=== PATIENT | female | born 1970 | race Caucasian/White ===

== ENCOUNTER 2018-12-06 09:50 | Emergency (ER) | payer MEDICARE ==
[~2018-12-06] VITALS: Ht 170.2 cm; Wt 105.2 kg
[~2018-12-06 09:50] MED LIST: ATENOLOL25 MG PO; BENICAR20 MG; GLUCOPHAGE1000 MG; LEVOTHYROXINE125 MCG; LEVOTHYROXINE137 MCG PO; NOVOLIN 70100 UNITS/ SQ; PROPANOLOL ER; TRAJENTA
[2018-12-06 12:17] LABS: BASOPHILS # (AUTO) 0.1 (0.0-0.1); BASOPHILS % 0.5 % (0.0-1.0); EOSINOPHILS # (AUTO) 0.1 (0.0-0.4); EOSINOPHILS % 0.5 % (0.0-6.0); HEMATOCRIT 27.2 % (34.2-44.1); LYMPHOCYTES # (AUTO) 9.1 (1.0-3.2); LYMPHOCYTES % 41.9 % (18.0-39.1); MEAN CORPUSCULAR HEMOGLOBIN 16.2 pg (28-32); MEAN CORPUSCULAR HGB CONC 24.6 g/dL (31-35); MEAN CORPUSCULAR VOLUME 65.7 fL (81-99); MONOCYTES # (AUTO) 1.6 (0.2-0.8); MONOCYTES % 7.3 % (4.4-11.3); NEUTROPHILS # (AUTO) 10.6 (2.1-6.9); NEUTROPHILS % 49.2 % (38.7-80.0); PLATELET COUNT 307 x10e3/uL (140-360); RED BLOOD COUNT 4.14 x10e6/uL (3.6-5.1); RED CELL DISTRIBUTION WIDTH 20.7 % (11.7-14.4)
[2018-12-06 12:28] LABS: HEMOGLOBIN 6.7 g/dL (12.0-16.0)
[2018-12-06 13:17] LABS: PREGNANCY TEST, URINE NEGATIVE (NEGATIVE)
[2018-12-06 13:20] LABS: BILIRUBIN,URINE NEGATIVE (NEGATIVE); CLARITY,URINE SL CLOUDY (CLEAR); COLOR,URINE YELLOW (YELLOW); KETONES,URINE NEGATIVE (NEGATIVE); LEUKOCYTE ESTERASE ,URINE MODERATE (NEGATIVE); NITRITE,URINE NEGATIVE (NEGATIVE); PROTEIN,URINE DIPSTICK TRACE (NEGATIVE); URINE UROBILINOGEN 0.2 mg/dL (0.2 - 1)
[2018-12-06 13:39] LABS: BACTERIA,URINE MODERATE /HPF; EPITHELIAL CELLS,URINE MODERATE /LPF
--- NOTE | 2018-12-06 13:54 | Diagnostic Imaging Report ---
EXAMINATION: PA and lateral views of the chest. COMPARISON: None CLINICAL HISTORY: Shortness of breath DISCUSSION: The lungs are well-inflated. No focal airspace consolidation, pleural effusion, or pneumothorax. Cardiomediastinal contour and pulmonary vasculature are within normal limits. No acute osseous abnormality. Spinal stimulator device terminates over the mid thoracic vertebral column. Multilevel degenerative disc changes of the thoracic spine. IMPRESSION: No acute cardiopulmonary abnormalities. Signed by: Dr. Ryne Ricci M.D. on 12/06/2018 1:51 PM
[2018-12-06] MEDS ORDERED: CEFTRIAXONE SOD 1 GM VIAL IM ONE (14:00)
[2018-12-06] MEDS ORDERED: LIDOCAINE HCL 1% LOCAL INJ 20 ML VIAL INJ ONE (14:00)
[2018-12-06 14:47] VITALS: BP 143/61
== END 2018-12-06 14:50 | disposition home or self-care (01) ==
LOC: ER 09:50
DX: D50.0 Iron deficiency anemia secondary to blood loss (chronic) (principal); N30.01 Acute cystitis with hematuria; D64.9 Anemia, unspecified; Z83.3 Family history of diabetes mellitus; Z82.49 Family history of ischemic heart disease and other diseases of the circulatory system
CPT/HCPCS: 36415; 71046; 81001; 81025; 85025; 87086; 99283; J0696; J2001

== ENCOUNTER 2021-07-07 11:17 | Inpatient (IN) | payer MEDICARE ==
[~2021-07-07] VITALS: Ht 170.2 cm; Wt 117.9 kg
[2021-07-07] VITALS (12 sets, daily range): BP systolic 111–160; BP diastolic 64–101
[2021-07-07] MEDS ORDERED: INSULIN REGULAR, HUMAN 100 UNIT/1 ML IV ONE ×2 (11:30→15:30)
[2021-07-07] MEDS ORDERED: ALBUTEROL/IPRATROPIUM 3 ML NEB NEB ONE (11:30)
[2021-07-07 12:01] LABS: HEMATOCRIT 43.4 % (34.2-44.1); HEMOGLOBIN 12.7 g/dL (12.0-16.0); LYMPHOCYTES # (AUTO) 93.2 (1.0-3.2); LYMPHOCYTES % 78.4 % (18.0-39.1); MEAN CORPUSCULAR HEMOGLOBIN 26.3 pg (28-32); MEAN CORPUSCULAR HGB CONC 29.3 g/dL (31-35); MEAN CORPUSCULAR VOLUME 89.9 fL (81-99); MONOCYTES # (AUTO) 4.3 (0.2-0.8); MONOCYTES % 3.6 % (4.4-11.3); NEUTROPHILS # (AUTO) 20.1 (2.1-6.9); NEUTROPHILS % 16.9 % (38.7-80.0); PLATELET COUNT 314 x10e3/uL (140-360); RED BLOOD COUNT 4.83 x10e6/uL (3.6-5.1); RED CELL DISTRIBUTION WIDTH 15.2 % (11.7-14.4)
[2021-07-07 12:08] LABS: CLARITY,URINE SL CLOUDY (CLEAR); COLOR,URINE YELLOW (YELLOW)
[2021-07-07 12:10] LABS: KETONES,URINE >=160 (NEGATIVE); LEUKOCYTE ESTERASE ,URINE NEGATIVE (NEGATIVE); NITRITE,URINE NEGATIVE (NEGATIVE); PROTEIN,URINE DIPSTICK >=300 (NEGATIVE); URINE UROBILINOGEN 1 mg/dL (0.2 - 1)
[2021-07-07] MEDS ORDERED: CEFEPIME 1 GM in SODIUM CHLORIDE 0.9% 50ML 50 ML IV ONE (12:15)
[2021-07-07 12:24] LABS: ALBUMIN 2.5 g/dL (3.5-5.0); ALBUMIN/GLOBULIN RATIO 0.5 (0.8-2.0); ANION GAP 29.2 mmol/L (8-16); CALCIUM 7.5 mg/dL (8.4-10.2); CREATININE, SERUM 1.27 mg/dL (0.57-1.11); POTASSIUM 4.2 mmol/L (3.5-5.1)
[2021-07-07 12:26] LABS: BACTERIA,URINE MANY /HPF; EPITHELIAL CELLS,URINE FEW /LPF
[2021-07-07] MEDS ORDERED: LACTATED RINGER'S 1,000 ML ONE (12:38)
[2021-07-07 12:45] LABS: LYMPHOCYTES % (MANUAL) 84 % (19-48); MONOCYTES % (MANUAL) 2 % (3.4-9.0); NEUTROPHILS % (MANUAL) 14 % (40-74); PLATELET ESTIMATE ADEQUATE
[2021-07-07] MEDS ORDERED: Vancomycin IV 1 GM in SODIUM CHLORIDE 0.9% 250ML 250 ML IV SCH (12:45)
[2021-07-07 12:46] LABS: PLATELET MORPHOLOGY COMMENT NORMAL; RBC MORPHOLOGY COMMENT NORMAL
[2021-07-07] MEDS ORDERED: ALBUTEROL SULFATE HFA 8GM INHALATION AEROSOL INH PRN (13:00)
[2021-07-07] MEDS ORDERED: MAGNESIUM SULF 1GRAM/DEXTROSE 100 ML IV PRN (13:00)
[2021-07-07] MEDS: SODIUM CHLORIDE 0.9% 1000ML 1,000 ML IV SCH ×5 (13:00→21:00)
[2021-07-07] MEDS ORDERED: POTASSIUM CHLORIDE 20MEQ/100ML 200 ML IV PRN (13:00)
[2021-07-07] MEDS ORDERED: INSULIN REGULAR, HUMAN 3ML VL 100 UNIT in SODIUM CHLORIDE 0.9% 99 ML IV SCH ×2 (13:15)
[2021-07-07 13:23] LABS: ABG HCO3 17 mmol/L (22-26); ABG PCO2 35 mmHg (35-45); ABG PH 7.29 (7.35-7.45); ABG PO2 71 mmHg (80-105); ABG TCO2 18
[2021-07-07] MEDS ORDERED: SODIUM CHLORIDE 0.9% 50ML 50 ML ONE (14:17)
[2021-07-07] MEDS ORDERED: IOPAMIDOL 370 MG/ML 200 ML INFUS..BTL INJ ONE (14:18)
[2021-07-07] MEDS ORDERED: DOCUSATE SODIUM 100 MG CAP PO PRN (15:45)
[2021-07-07] MEDS ORDERED: ONDANSETRON HCL INJ 2MG/ML 2ML 2 MG/ML VIAL IV PRN (15:45)
[2021-07-07] MEDS ORDERED: HYDRALAZINE HCL 20 MG/ML VIAL IV PRN (15:45)
[2021-07-07 15:46] LABS: PHOSPHORUS 3.8 MG/DL (2.3-4.7)
[2021-07-07] MEDS ORDERED: REMDESIVIR 100MG 200 MG in SODIUM CHLORIDE 0.9% 100 ML IV ONE (16:00)
[2021-07-07] MEDS ORDERED: DEXAMETHASONE SOD PHOS 10 MG/1 ML VIAL IV ONE (16:00)
[2021-07-07 16:08] LABS: FERRITIN 525.62 ng/mL (4.63-204.00); FREE THYROXINE INDEX 1.1164 (1.4-3.8); THYROID STIMULATING HORMONE 1.623 uIU/mL (0.350-4.940)
[2021-07-07] MEDS ORDERED: METOPROLOL TARTRATE INJ 1 MG/ML VIAL IV PRN (17:45)
[2021-07-07 18:25] LABS: ANION GAP 23.4 mmol/L (8-16); CALCIUM 7.4 mg/dL (8.4-10.2); CREATININE, SERUM 1.06 mg/dL (0.57-1.11); MAGNESIUM 2.1 MG/DL (1.3-2.1); POTASSIUM 4.4 mmol/L (3.5-5.1)
[2021-07-07] MEDS: DEXTROSE 5%/0.45% SOD CHL 1,000 ML IV SCH ×2 (21:12)
[2021-07-07] MEDS: ENOXAPARIN SOD INJ 40 MG/0.4 ML SYR SC SCH (21:55)
[2021-07-07 22:29] LABS: ANION GAP 17.6 mmol/L (8-16); CALCIUM 7.2 mg/dL (8.4-10.2); CREATININE, SERUM 0.84 mg/dL (0.57-1.11); POTASSIUM 3.6 mmol/L (3.5-5.1)
[2021-07-07] MEDS: MEROPENEM 1 GM in SODIUM CHLORIDE 0.9% 100 ML IV SCH (22:55)
[2021-07-07] MEDS: Vancomycin IV 1 GM in SODIUM CHLORIDE 0.9% 250ML 250 ML IV SCH (23:24)
[2021-07-08] VITALS (25 sets, daily range): BP systolic 110–165; BP diastolic 54–112
[2021-07-08] MEDS: SODIUM CHLORIDE 0.9% 1000ML 1,000 ML IV SCH ×3 (01:00→05:00)
[2021-07-08] MEDS: ACETAMINOPHEN 325 MG TAB PO PRN (01:09)
[2021-07-08] MEDS: METOPROLOL TARTRATE 50 MG TAB NG SCH ×4 (01:09→22:50)
[2021-07-08] MEDS: DEXTROSE 5%/0.45% SOD CHL 1,000 ML IV SCH (01:44)
[2021-07-08 02:22] LABS: ANION GAP 17.6 mmol/L (8-16); CREATININE, SERUM 0.79 mg/dL (0.57-1.11); MAGNESIUM 2.1 MG/DL (1.3-2.1); POTASSIUM 3.6 mmol/L (3.5-5.1)
[2021-07-08] MEDS ORDERED: CALCIUM GLUCONATE 10% INJ 4.65 MEQ in SODIUM CHLORIDE 0.9% 50ML 50 ML IV ONE (04:00)
[2021-07-08] MEDS ORDERED: DEXAMETHASONE SOD PHOS 10 MG/1 ML VIAL IV SCH (04:00)
[2021-07-08] MEDS: LEVOTHYROXINE SODIUM 25 MCG TABLET PO SCH (05:50)
[2021-07-08] MEDS: MEROPENEM 1 GM in SODIUM CHLORIDE 0.9% 100 ML IV SCH ×3 (05:50→22:50)
[2021-07-08] MEDS: LEVOTHYROXINE SODIUM 112 MCG TAB PO SCH (05:50)
[2021-07-08] MEDS ORDERED: LEVOTHYROXINE SODIUM 125 MCG TAB PO SCH (06:00)
[2021-07-08] MEDS ORDERED: DEXTROSE 50% SYRINGE 50 ML IV ONE (06:26)
[2021-07-08] MEDS ORDERED: DEXTROSE 50% SYRINGE 50 ML IV STA (06:28)
[2021-07-08 06:32] LABS: HEMATOCRIT 40.3 % (34.2-44.1); HEMOGLOBIN 11.9 g/dL (12.0-16.0); LYMPHOCYTES # (AUTO) 98.9 (1.0-3.2); MEAN CORPUSCULAR HEMOGLOBIN 26.2 pg (28-32); MEAN CORPUSCULAR HGB CONC 29.5 g/dL (31-35); MEAN CORPUSCULAR VOLUME 88.8 fL (81-99); MONOCYTES # (AUTO) 4.1 (0.2-0.8); MONOCYTES % 3.3 % (4.4-11.3); NEUTROPHILS # (AUTO) 20.7 (2.1-6.9); NEUTROPHILS % 16.6 % (38.7-80.0); PLATELET COUNT 386 x10e3/uL (140-360); RED BLOOD COUNT 4.54 x10e6/uL (3.6-5.1); RED CELL DISTRIBUTION WIDTH 15.2 % (11.7-14.4)
[2021-07-08 06:57] LABS: ANION GAP 13.9 mmol/L (8-16); CALCIUM 7.3 mg/dL (8.4-10.2); CREATININE, SERUM 0.81 mg/dL (0.57-1.11); MAGNESIUM 2.1 MG/DL (1.3-2.1); POTASSIUM 3.9 mmol/L (3.5-5.1)
[2021-07-08] MEDS ORDERED: DEXTROSE 50% SYRINGE 50 ML IV PRN (07:15)
[2021-07-08] MEDS: INSULIN REGULAR, HUMAN 3ML VL 100 UNIT in SODIUM CHLORIDE 0.9% 99 ML IV SCH ×2 (08:55)
[2021-07-08] MEDS ORDERED: ATENOLOL 50 MG TAB PO SCH (09:00)
[2021-07-08] MEDS: MULTIVITAMINS/MINERALS TAB PO SCH (09:08)
[2021-07-08 11:00] LABS: LYMPHOCYTES % (MANUAL) 80 % (19-48); MONOCYTES % (MANUAL) 2 % (3.4-9.0); NEUTROPHILS % (MANUAL) 12 % (40-74); PLATELET ESTIMATE ADEQUATE; PLATELET MORPHOLOGY COMMENT NORMAL; RBC MORPHOLOGY COMMENT NORMAL
[2021-07-08] MEDS: Vancomycin IV 1 GM in SODIUM CHLORIDE 0.9% 250ML 250 ML IV SCH ×2 (11:56→22:50)
[2021-07-08] MEDS ORDERED: SODIUM CHLORIDE 0.9% 100 ML ONE (13:13)
[2021-07-08] MEDS: REMDESIVIR 100MG 100 MG in SODIUM CHLORIDE 0.9% 100 ML IV SCH (13:50)
[2021-07-08] MEDS: ENOXAPARIN SOD INJ 40 MG/0.4 ML SYR SC SCH (18:42)
[2021-07-09] VITALS (24 sets, daily range): BP systolic 94–168; BP diastolic 49–96
[2021-07-09 06:10] LABS: HEMATOCRIT 40.6 % (34.2-44.1); HEMOGLOBIN 11.8 g/dL (12.0-16.0); LYMPHOCYTES # (AUTO) 105.1 (1.0-3.2); LYMPHOCYTES % 80.1 % (18.0-39.1); MEAN CORPUSCULAR HGB CONC 29.1 g/dL (31-35); MEAN CORPUSCULAR VOLUME 89.6 fL (81-99); MONOCYTES # (AUTO) 3.8 (0.2-0.8); MONOCYTES % 2.9 % (4.4-11.3); PLATELET COUNT 423 x10e3/uL (140-360); RED BLOOD COUNT 4.53 x10e6/uL (3.6-5.1); RED CELL DISTRIBUTION WIDTH 15.4 % (11.7-14.4)
[2021-07-09 06:31] LABS: ALBUMIN/GLOBULIN RATIO 0.4 (0.8-2.0); ANION GAP 22.5 mmol/L (8-16); CREATININE, SERUM 0.92 mg/dL (0.57-1.11); POTASSIUM 4.5 mmol/L (3.5-5.1)
[2021-07-09 06:38] LABS: CALCIUM 6.9 mg/dL (8.4-10.2)
[2021-07-09] MEDS: MEROPENEM 1 GM in SODIUM CHLORIDE 0.9% 100 ML IV SCH ×3 (06:50→21:59)
[2021-07-09] MEDS: LEVOTHYROXINE SODIUM 112 MCG TAB PO SCH (06:50)
[2021-07-09] MEDS: METOPROLOL TARTRATE 50 MG TAB NG SCH ×3 (06:50→22:00)
[2021-07-09] MEDS: LEVOTHYROXINE SODIUM 25 MCG TABLET PO SCH (06:50)
[2021-07-09] MEDS: DEXAMETHASONE SOD PHOS 10 MG/1 ML VIAL IV SCH (08:23)
[2021-07-09] MEDS: MULTIVITAMINS/MINERALS TAB PO SCH (08:23)
[2021-07-09] MEDS: Vancomycin IV 1 GM in SODIUM CHLORIDE 0.9% 250ML 250 ML IV SCH (12:50)
[2021-07-09 13:17] LABS: LYMPHOCYTES % (MANUAL) 85 % (19-48); MONOCYTES % (MANUAL) 1 % (3.4-9.0); NEUTROPHILS % (MANUAL) 14 % (40-74); PLATELET ESTIMATE ADEQUATE; PLATELET MORPHOLOGY COMMENT NORMAL; RBC MORPHOLOGY COMMENT NORMAL
[2021-07-09] MEDS: REMDESIVIR 100MG 100 MG in SODIUM CHLORIDE 0.9% 100 ML IV SCH (14:33)
[2021-07-09] MEDS ORDERED: AMIODARONE HCL 100 ML IV ONE (17:04)
[2021-07-09] MEDS ORDERED: AMIODARONE HCL 150 MG/100 ML BAG IV ONE (17:30)
[2021-07-09] MEDS ORDERED: AMIODARONE 900MG 500 ML IV ONE (18:00)
[2021-07-09] MEDS: METOPROLOL TARTRATE INJ 1 MG/ML VIAL IV PRN ×2 (18:07→22:00)
[2021-07-09] MEDS ORDERED: DEXMEDETOMIDINE 400MCG/NS100ML 100 ML IV PRN (18:15)
[2021-07-09] MEDS ORDERED: DIGOXIN INJ 0.25 MG/ML 2 ML AMP IV STA (19:04)
[2021-07-09 19:42] LABS: ABG PCO2 35 mmHg (35-45); ABG PH 7.38 (7.35-7.45); ABG PO2 63 mmHg (80-105)
[2021-07-09 19:43] LABS: ABG HCO3 21 mmol/L (22-26); ABG TCO2 22
[2021-07-09] MEDS ORDERED: ACETAMINOPHEN 1000 MG/100 ML 100 ML IV ONE (19:46)
[2021-07-09 20:02] LABS: HEMATOCRIT 35.3 % (34.2-44.1); LYMPHOCYTES # (AUTO) 89.7 (1.0-3.2); LYMPHOCYTES % 81.3 % (18.0-39.1); MEAN CORPUSCULAR HEMOGLOBIN 25.6 pg (28-32); MEAN CORPUSCULAR HGB CONC 28.3 g/dL (31-35); MEAN CORPUSCULAR VOLUME 90.5 fL (81-99); MONOCYTES # (AUTO) 2.5 (0.2-0.8); MONOCYTES % 2.3 % (4.4-11.3); NEUTROPHILS # (AUTO) 17.2 (2.1-6.9); NEUTROPHILS % 15.5 % (38.7-80.0); PLATELET COUNT 390 x10e3/uL (140-360); RED CELL DISTRIBUTION WIDTH 15.9 % (11.7-14.4)
[2021-07-09 20:22] LABS: ALBUMIN 1.7 g/dL (3.5-5.0); ALBUMIN/GLOBULIN RATIO 0.5 (0.8-2.0); ANION GAP 17.7 mmol/L (8-16); CREATININE, SERUM 1.04 mg/dL (0.57-1.11); POTASSIUM 4.7 mmol/L (3.5-5.1)
[2021-07-09 20:38] LABS: CALCIUM 6.2 mg/dL (8.4-10.2)
[2021-07-09] MEDS ORDERED: LACTATED RINGER'S 500 ML INJ ONE (21:00)
[2021-07-09] MEDS ORDERED: LACTATED RINGER'S 1,000 ML ONE (21:01)
[2021-07-09 21:15] LABS: LYMPHOCYTES % (MANUAL) 87 % (19-48); MONOCYTES % (MANUAL) 1 % (3.4-9.0); NEUTROPHILS % (MANUAL) 12 % (40-74)
[2021-07-09 21:17] LABS: PLATELET ESTIMATE ADEQUATE; PLATELET MORPHOLOGY COMMENT NORMAL; RBC MORPHOLOGY COMMENT NORMAL
[2021-07-09] MEDS: ENOXAPARIN SOD INJ 120 MG/0.8 ML SYR SC SCH (21:59)
[2021-07-09] MEDS ORDERED: DIGOXIN INJ 0.25 MG/ML 2 ML AMP IV ONE (23:00)
[2021-07-10] VITALS (23 sets, daily range): BP systolic 93–152; BP diastolic 50–138
[2021-07-10] MEDS: Vancomycin IV 1 GM in SODIUM CHLORIDE 0.9% 250ML 250 ML IV SCH ×3 (01:00→22:05)
[2021-07-10] MEDS: INSULIN REGULAR, HUMAN 3ML VL 100 UNIT in SODIUM CHLORIDE 0.9% 99 ML IV SCH ×2 (01:01)
[2021-07-10 05:12] LABS: HEMATOCRIT 39.5 % (34.2-44.1); HEMOGLOBIN 11.3 g/dL (12.0-16.0); LYMPHOCYTES # (AUTO) 115.2 (1.0-3.2); LYMPHOCYTES % 83.3 % (18.0-39.1); MEAN CORPUSCULAR HEMOGLOBIN 25.9 pg (28-32); MEAN CORPUSCULAR HGB CONC 28.6 g/dL (31-35); MEAN CORPUSCULAR VOLUME 90.4 fL (81-99); MONOCYTES # (AUTO) 3.6 (0.2-0.8); MONOCYTES % 2.6 % (4.4-11.3); NEUTROPHILS # (AUTO) 18.2 (2.1-6.9); NEUTROPHILS % 13.2 % (38.7-80.0); PLATELET COUNT 466 x10e3/uL (140-360); RED BLOOD COUNT 4.37 x10e6/uL (3.6-5.1); RED CELL DISTRIBUTION WIDTH 15.9 % (11.7-14.4)
[2021-07-10 05:21] LABS: ANION GAP 15.2 mmol/L (8-16); CREATININE, SERUM 0.85 mg/dL (0.57-1.11); POTASSIUM 4.2 mmol/L (3.5-5.1)
[2021-07-10 05:37] LABS: CALCIUM 6.5 mg/dL (8.4-10.2)
[2021-07-10] MEDS: LEVOTHYROXINE SODIUM 25 MCG TABLET PO SCH (06:43)
[2021-07-10] MEDS: MEROPENEM 1 GM in SODIUM CHLORIDE 0.9% 100 ML IV SCH ×3 (06:43→21:57)
[2021-07-10] MEDS: METOPROLOL TARTRATE 50 MG TAB NG SCH ×3 (06:43→21:57)
[2021-07-10] MEDS: LEVOTHYROXINE SODIUM 112 MCG TAB PO SCH (06:43)
[2021-07-10] MEDS: DEXAMETHASONE SOD PHOS 10 MG/1 ML VIAL IV SCH (07:59)
[2021-07-10] MEDS: ENOXAPARIN SOD INJ 120 MG/0.8 ML SYR SC SCH ×2 (08:00→21:56)
[2021-07-10] MEDS: ALLOPURINOL 100 MG TAB PO SCH (08:00)
[2021-07-10] MEDS: MULTIVITAMINS/MINERALS TAB PO SCH (08:00)
[2021-07-10] MEDS: HYDROXYUREA 500 MG CAPSULE PO SCH ×2 (08:00→16:43)
[2021-07-10] MEDS: METOPROLOL TARTRATE INJ 1 MG/ML VIAL IV PRN (08:10)
[2021-07-10] MEDS: REMDESIVIR 100MG 100 MG in SODIUM CHLORIDE 0.9% 100 ML IV SCH (13:57)
[2021-07-10] MEDS ORDERED: DEXTROSE 50% SYRINGE 50 ML IV PRN (15:45)
[2021-07-10] MEDS ORDERED: AMIODARONE 900MG 500 ML IV ONE (16:00)
[2021-07-10 16:23] LABS: FREE T4 (FREE THYROXINE) 0.75 ng/dL (0.8-1.8); THYROID STIMULATING HORMONE 1.332 uIU/mL (0.350-4.940)
[2021-07-10] MEDS ORDERED: INSULIN REGULAR, HUMAN 3ML VL 100 UNIT in SODIUM CHLORIDE 0.9% 99 ML IV SCH ×2 (17:00)
[2021-07-10] MEDS: INSULIN GLARGINE 100 UNITS/ML VIAL SQ SCH (21:56)
[2021-07-11] VITALS (24 sets, daily range): BP systolic 108–157; BP diastolic 57–133
[2021-07-11] MEDS: ACETAMINOPHEN 325 MG TAB PO PRN (04:19)
[2021-07-11] MEDS: MEROPENEM 1 GM in SODIUM CHLORIDE 0.9% 100 ML IV SCH ×3 (06:04→21:31)
[2021-07-11] MEDS: LEVOTHYROXINE SODIUM 25 MCG TABLET PO SCH (06:04)
[2021-07-11] MEDS: METOPROLOL TARTRATE 50 MG TAB NG SCH ×3 (06:04→21:31)
[2021-07-11] MEDS: LEVOTHYROXINE SODIUM 112 MCG TAB PO SCH (06:05)
[2021-07-11] MEDS: INSULIN REGULAR, HUMAN 3ML VL 100 UNIT in SODIUM CHLORIDE 0.9% 99 ML IV SCH ×2 (06:06)
[2021-07-11] MEDS: DEXAMETHASONE SOD PHOS 10 MG/1 ML VIAL IV SCH (08:04)
[2021-07-11] MEDS: HYDROXYUREA 500 MG CAPSULE PO SCH ×2 (08:04→16:04)
[2021-07-11] MEDS: ENOXAPARIN SOD INJ 120 MG/0.8 ML SYR SC SCH ×2 (08:05→21:31)
[2021-07-11] MEDS: ALLOPURINOL 100 MG TAB PO SCH (08:05)
[2021-07-11] MEDS: MULTIVITAMINS/MINERALS TAB PO SCH (08:05)
[2021-07-11] MEDS: AMIODARONE HCL 200 MG TAB PO SCH ×3 (10:00→16:04)
[2021-07-11] MEDS: Vancomycin IV 1 GM in SODIUM CHLORIDE 0.9% 250ML 250 ML IV SCH (10:00)
[2021-07-11] MEDS: REMDESIVIR 100MG 100 MG in SODIUM CHLORIDE 0.9% 100 ML IV SCH (14:11)
[2021-07-11] MEDS: DILTIAZEM HCL 30 MG TAB PO SCH (17:38)
[2021-07-11] MEDS ORDERED: INSULIN GLARGINE 100 UNITS/ML VIAL SQ SCH (21:00)
[2021-07-11] MEDS: INSULIN GLARGINE 100 UNITS/ML VIAL SQ SCH (21:33)
[2021-07-12] VITALS (25 sets, daily range): BP systolic 83–143; BP diastolic 55–102
[2021-07-12] MEDS: INSULIN REGULAR, HUMAN 3ML VL 100 UNIT in SODIUM CHLORIDE 0.9% 99 ML IV SCH ×2 (04:17)
[2021-07-12 05:07] LABS: BASOPHILS # (AUTO) 0.1 (0.0-0.1); EOSINOPHILS # (AUTO) 0.1 (0.0-0.4); EOSINOPHILS % 0.1 % (0.0-6.0); HEMATOCRIT 40.2 % (34.2-44.1); HEMOGLOBIN 12.1 g/dL (12.0-16.0); LYMPHOCYTES # (AUTO) 105.1 (1.0-3.2); LYMPHOCYTES % 85.9 % (18.0-39.1); MEAN CORPUSCULAR HEMOGLOBIN 26.4 pg (28-32); MEAN CORPUSCULAR HGB CONC 30.1 g/dL (31-35); MEAN CORPUSCULAR VOLUME 87.6 fL (81-99); MONOCYTES # (AUTO) 3.6 (0.2-0.8); MONOCYTES % 2.9 % (4.4-11.3); NEUTROPHILS # (AUTO) 12.5 (2.1-6.9); NEUTROPHILS % 10.2 % (38.7-80.0); PLATELET COUNT 491 x10e3/uL (140-360); RED BLOOD COUNT 4.59 x10e6/uL (3.6-5.1); RED CELL DISTRIBUTION WIDTH 15.9 % (11.7-14.4)
[2021-07-12 05:29] LABS: ALBUMIN 2.1 g/dL (3.5-5.0); ALBUMIN/GLOBULIN RATIO 0.6 (0.8-2.0); ANION GAP 15.6 mmol/L (8-16); CREATININE, SERUM 0.68 mg/dL (0.57-1.11); POTASSIUM 3.6 mmol/L (3.5-5.1)
[2021-07-12] MEDS: MEROPENEM 1 GM in SODIUM CHLORIDE 0.9% 100 ML IV SCH ×2 (05:36→13:23)
[2021-07-12] MEDS: LEVOTHYROXINE SODIUM 25 MCG TABLET PO SCH (05:37)
[2021-07-12] MEDS: METOPROLOL TARTRATE 50 MG TAB NG SCH ×3 (05:37→22:00)
[2021-07-12] MEDS: LEVOTHYROXINE SODIUM 112 MCG TAB PO SCH (05:37)
[2021-07-12] MEDS: DILTIAZEM HCL 30 MG TAB PO SCH ×2 (05:37→17:33)
[2021-07-12 05:41] LABS: CALCIUM 6.3 mg/dL (8.4-10.2)
[2021-07-12] MEDS: HYDROXYUREA 500 MG CAPSULE PO SCH ×2 (08:12→17:00)
[2021-07-12] MEDS: MULTIVITAMINS/MINERALS TAB PO SCH (08:12)
[2021-07-12] MEDS: DEXAMETHASONE SOD PHOS 10 MG/1 ML VIAL IV SCH (08:12)
[2021-07-12] MEDS: AMIODARONE HCL 200 MG TAB PO SCH ×2 (08:12→17:00)
[2021-07-12] MEDS: ALLOPURINOL 100 MG TAB PO SCH (08:13)
[2021-07-12] MEDS: ENOXAPARIN SOD INJ 120 MG/0.8 ML SYR SC SCH ×2 (08:14→20:52)
[2021-07-12 10:24] LABS: LYMPHOCYTES % (MANUAL) 84 % (19-48); NEUTROPHILS % (MANUAL) 16 % (40-74); PLATELET ESTIMATE ADEQUATE
[2021-07-12 10:25] LABS: PLATELET MORPHOLOGY COMMENT NORMAL; RBC MORPHOLOGY COMMENT NORMAL; SMUDGE CELLS MODERATE
[2021-07-12] MEDS: HALOPERIDOL LACTATE 5 MG/ML VIAL IV PRN (14:33)
[2021-07-12] MEDS ORDERED: DIGOXIN INJ 0.25 MG/ML 2 ML AMP IV ONE (14:45)
[2021-07-12] MEDS ORDERED: LORAZEPAM INJ 2 MG/ML VIAL IV ONE (14:45)
[2021-07-12] MEDS ORDERED: DEXTROSE 50% SYRINGE 50 ML IV PRN (14:45)
[2021-07-12] MEDS ORDERED: INSULIN LISPRO 100 UNIT/1 ML 3ML VIAL SQ ONE (15:00)
[2021-07-12] MEDS: INSULIN LISPRO 100 UNIT/1 ML 3ML VIAL SQ SCH ×2 (16:21→20:27)
[2021-07-12] MEDS ORDERED: INSULIN GLARGINE 100 UNITS/ML VIAL SQ SCH ×2 (21:00)
[2021-07-13] VITALS (27 sets, daily range): BP systolic 89–134; BP diastolic 51–95
[2021-07-13] MEDS: LEVOTHYROXINE SODIUM 25 MCG TABLET PO SCH (05:19)
[2021-07-13] MEDS: LEVOTHYROXINE SODIUM 112 MCG TAB PO SCH (05:19)
[2021-07-13] MEDS: DILTIAZEM HCL 30 MG TAB PO SCH ×2 (05:24→17:41)
[2021-07-13] MEDS: METOPROLOL TARTRATE 50 MG TAB NG SCH ×3 (05:24→21:48)
[2021-07-13 05:59] LABS: HEMATOCRIT 32.5 % (34.2-44.1); HEMOGLOBIN 9.6 g/dL (12.0-16.0); LYMPHOCYTES # (AUTO) 109.6 (1.0-3.2); LYMPHOCYTES % 85.7 % (18.0-39.1); MEAN CORPUSCULAR HEMOGLOBIN 26.7 pg (28-32); MEAN CORPUSCULAR HGB CONC 29.5 g/dL (31-35); MEAN CORPUSCULAR VOLUME 90.5 fL (81-99); MONOCYTES # (AUTO) 3.4 (0.2-0.8); MONOCYTES % 2.6 % (4.4-11.3); NEUTROPHILS # (AUTO) 13.4 (2.1-6.9); NEUTROPHILS % 10.6 % (38.7-80.0); PLATELET COUNT 555 x10e3/uL (140-360); RED BLOOD COUNT 3.59 x10e6/uL (3.6-5.1); RED CELL DISTRIBUTION WIDTH 15.9 % (11.7-14.4)
[2021-07-13 06:30] LABS: ALBUMIN/GLOBULIN RATIO 0.6 (0.8-2.0); ANION GAP 15.6 mmol/L (8-16); CREATININE, SERUM 0.78 mg/dL (0.57-1.11); POTASSIUM 4.6 mmol/L (3.5-5.1)
[2021-07-13] MEDS: METOPROLOL TARTRATE INJ 1 MG/ML VIAL IV PRN ×2 (06:36→14:03)
[2021-07-13 06:40] LABS: CALCIUM 6.1 mg/dL (8.4-10.2)
[2021-07-13] MEDS: INSULIN LISPRO 100 UNIT/1 ML 3ML VIAL SQ SCH ×5 (08:16→20:05)
[2021-07-13] MEDS: ALLOPURINOL 100 MG TAB PO SCH (08:19)
[2021-07-13] MEDS: MULTIVITAMINS/MINERALS TAB PO SCH (08:19)
[2021-07-13] MEDS: ENOXAPARIN SOD INJ 120 MG/0.8 ML SYR SC SCH (08:19)
[2021-07-13] MEDS: HYDROXYUREA 500 MG CAPSULE PO SCH ×2 (08:19→16:28)
[2021-07-13] MEDS: AMIODARONE HCL 200 MG TAB PO SCH ×2 (08:19→16:28)
[2021-07-13] MEDS: DEXAMETHASONE SOD PHOS 10 MG/1 ML VIAL IV SCH (08:19)
[2021-07-13] MEDS ORDERED: HYDROXYUREA 500 MG CAPSULE PO ONE (09:15)
[2021-07-13] MEDS ORDERED: FUROSEMIDE INJ 10 MG/ML 4 ML VIAL IV ONE (10:30)
[2021-07-13 10:56] LABS: LYMPHOCYTES % (MANUAL) 85 % (19-48); MONOCYTES % (MANUAL) 1 % (3.4-9.0); NEUTROPHILS % (MANUAL) 14 % (40-74); PLATELET ESTIMATE SLIGHTLY INCREASED; PLATELET MORPHOLOGY COMMENT NORMAL
[2021-07-13 10:57] LABS: HYPOCHROMASIA SLIGHT; RBC MORPHOLOGY COMMENT NORMAL
[2021-07-13] MEDS: HALOPERIDOL LACTATE 5 MG/ML VIAL IV PRN (18:31)
[2021-07-13] MEDS ORDERED: INSULIN GLARGINE 100 UNITS/ML VIAL SQ SCH (21:00)
[2021-07-14] VITALS (40 sets, daily range): BP systolic 81–144; BP diastolic 45–79
[2021-07-14 04:05] LABS: % IRON SATURATION 35 % (15-50); IRON 81 ug/dL (50-170); TOTAL IRON BINDING CAPACITY 232 ug/dL (261-478); TRANSFERRIN 166 mg/dL (180-382)
[2021-07-14 05:10] LABS: BASOPHILS # (AUTO) 0.1 (0.0-0.1); LYMPHOCYTES # (AUTO) 86.4 (1.0-3.2); LYMPHOCYTES % 81.8 % (18.0-39.1); MEAN CORPUSCULAR HEMOGLOBIN 27.7 pg (28-32); MEAN CORPUSCULAR HGB CONC 30.8 g/dL (31-35); MONOCYTES # (AUTO) 3.2 (0.2-0.8); NEUTROPHILS # (AUTO) 14.3 (2.1-6.9); NEUTROPHILS % 13.6 % (38.7-80.0); PLATELET COUNT 476 x10e3/uL (140-360); RED BLOOD COUNT 2.49 x10e6/uL (3.6-5.1); RED CELL DISTRIBUTION WIDTH 15.4 % (11.7-14.4)
[2021-07-14 05:14] LABS: INR 1.15; PROTHROMBIN TIME 15.5 seconds (11.9-14.5)
[2021-07-14 05:25] LABS: ALBUMIN 1.9 g/dL (3.5-5.0); ALBUMIN/GLOBULIN RATIO 0.7 (0.8-2.0); ANION GAP 12.2 mmol/L (8-16); CREATININE, SERUM 0.84 mg/dL (0.57-1.11); POTASSIUM 4.2 mmol/L (3.5-5.1)
[2021-07-14 05:26] LABS: CALCIUM 6.3 mg/dL (8.4-10.2)
[2021-07-14 05:32] LABS: HEMATOCRIT 22.4 % (34.2-44.1)
[2021-07-14] MEDS: Pantoprazole IV 40 MG in SODIUM CHLORIDE 0.9% 50ML 50 ML IV SCH ×4 (05:32→19:27)
[2021-07-14] MEDS: LEVOTHYROXINE SODIUM 112 MCG TAB PO SCH (05:33)
[2021-07-14] MEDS: METOPROLOL TARTRATE 50 MG TAB NG SCH ×3 (05:33→21:00)
[2021-07-14] MEDS: LEVOTHYROXINE SODIUM 25 MCG TABLET PO SCH (05:33)
[2021-07-14] MEDS: DILTIAZEM HCL 30 MG TAB PO SCH ×2 (05:33→17:32)
[2021-07-14 05:34] LABS: HEMOGLOBIN 6.9 g/dL (12.0-16.0)
[2021-07-14] MEDS ORDERED: PHYTONADIONE 10 MG/ML AMP IV ONE (07:15)
[2021-07-14] MEDS ORDERED: SODIUM CHLORIDE 0.9% 250ML 250 ML IV ONE (07:15)
[2021-07-14] MEDS ORDERED: PHYTONADIONE 10MG/ML 20 MG in SODIUM CHLORIDE 0.9% 50ML 50 ML IV ONE (08:00)
[2021-07-14] MEDS: DEXAMETHASONE SOD PHOS 10 MG/1 ML VIAL IV SCH (08:20)
[2021-07-14] MEDS: MULTIVITAMINS/MINERALS TAB PO SCH (08:44)
[2021-07-14] MEDS: HYDROXYUREA 500 MG CAPSULE PO SCH ×2 (08:44→17:31)
[2021-07-14] MEDS: AMIODARONE HCL 200 MG TAB PO SCH ×2 (08:44→17:31)
[2021-07-14] MEDS: ALLOPURINOL 100 MG TAB PO SCH (08:44)
[2021-07-14] MEDS: INSULIN LISPRO 100 UNIT/1 ML 3ML VIAL SQ SCH ×6 (08:47→20:58)
[2021-07-14] MEDS ORDERED: STERILE WATER IV SCH (09:00)
[2021-07-14] MEDS ORDERED: SODIUM BICARBONATE 8.4% IV SCH (09:00)
[2021-07-14] MEDS ORDERED: ALBUMIN 25% 12.5GM 0.25 GM/ML BTL IV ONE (10:30)
[2021-07-14 11:17] LABS: LYMPHOCYTES % (MANUAL) 65 % (19-48); MONOCYTES % (MANUAL) 2 % (3.4-9.0); NEUTROPHILS % (MANUAL) 33 % (40-74); PLATELET ESTIMATE ADEQUATE; PLATELET MORPHOLOGY COMMENT NORMAL; RBC MORPHOLOGY COMMENT NORMAL
[2021-07-14 16:23] LABS: HEMOGLOBIN 7.8 g/dL (12.0-16.0); LYMPHOCYTES # (AUTO) 67.8 (1.0-3.2); LYMPHOCYTES % 82.5 % (18.0-39.1); MEAN CORPUSCULAR HEMOGLOBIN 27.9 pg (28-32); MEAN CORPUSCULAR VOLUME 92.9 fL (81-99); MONOCYTES # (AUTO) 1.2 (0.2-0.8); MONOCYTES % 1.4 % (4.4-11.3); NEUTROPHILS # (AUTO) 12.4 (2.1-6.9); NEUTROPHILS % 15.1 % (38.7-80.0); PLATELET COUNT 357 x10e3/uL (140-360)
[2021-07-14] MEDS: INSULIN GLARGINE 100 UNITS/ML VIAL SQ SCH (20:58)
[2021-07-15] VITALS (20 sets, daily range): BP systolic 90–119; BP diastolic 53–94
[2021-07-15] MEDS: Pantoprazole IV 40 MG in SODIUM CHLORIDE 0.9% 50ML 50 ML IV SCH ×5 (00:26→21:31)
[2021-07-15 04:34] LABS: HEMATOCRIT 23.9 % (34.2-44.1); HEMOGLOBIN 7.5 g/dL (12.0-16.0); LYMPHOCYTES # (AUTO) 70.5 (1.0-3.2); LYMPHOCYTES % 82.3 % (18.0-39.1); MEAN CORPUSCULAR HEMOGLOBIN 29.6 pg (28-32); MEAN CORPUSCULAR HGB CONC 31.4 g/dL (31-35); MEAN CORPUSCULAR VOLUME 94.5 fL (81-99); MONOCYTES # (AUTO) 1.4 (0.2-0.8); MONOCYTES % 1.6 % (4.4-11.3); NEUTROPHILS # (AUTO) 12.8 (2.1-6.9); PLATELET COUNT 387 x10e3/uL (140-360); RED BLOOD COUNT 2.53 x10e6/uL (3.6-5.1); RED CELL DISTRIBUTION WIDTH 15.7 % (11.7-14.4)
[2021-07-15 04:53] LABS: ALBUMIN 2.2 g/dL (3.5-5.0); ALBUMIN/GLOBULIN RATIO 0.8 (0.8-2.0); ANION GAP 12.2 mmol/L (8-16); CREATININE, SERUM 0.78 mg/dL (0.57-1.11); POTASSIUM 4.2 mmol/L (3.5-5.1)
[2021-07-15 05:02] LABS: CALCIUM 6.8 mg/dL (8.4-10.2)
[2021-07-15] MEDS: METOPROLOL TARTRATE 50 MG TAB NG SCH ×3 (05:42→21:40)
[2021-07-15] MEDS: LEVOTHYROXINE SODIUM 25 MCG TABLET PO SCH (05:43)
[2021-07-15] MEDS: LEVOTHYROXINE SODIUM 112 MCG TAB PO SCH (05:43)
[2021-07-15] MEDS: DILTIAZEM HCL 30 MG TAB PO SCH ×2 (05:43→16:39)
[2021-07-15] MEDS: INSULIN LISPRO 100 UNIT/1 ML 3ML VIAL SQ SCH ×7 (07:18→21:00)
[2021-07-15] MEDS: HYDROXYUREA 500 MG CAPSULE PO SCH ×2 (08:05→16:39)
[2021-07-15] MEDS: DEXAMETHASONE SOD PHOS 10 MG/1 ML VIAL IV SCH (08:05)
[2021-07-15] MEDS: AMIODARONE HCL 200 MG TAB PO SCH ×2 (08:05→16:39)
[2021-07-15] MEDS: MULTIVITAMINS/MINERALS TAB PO SCH (08:05)
[2021-07-15] MEDS: ALLOPURINOL 100 MG TAB PO SCH (08:05)
[2021-07-15 11:48] LABS: LYMPHOCYTES % (MANUAL) 77 % (19-48); MONOCYTES % (MANUAL) 1 % (3.4-9.0); NEUTROPHILS % (MANUAL) 22 % (40-74); PLATELET ESTIMATE ADEQUATE; PLATELET MORPHOLOGY COMMENT NORMAL; RBC MORPHOLOGY COMMENT NORMAL
[2021-07-15] MEDS: INSULIN GLARGINE 100 UNITS/ML VIAL SQ SCH (21:35)
[2021-07-16] VITALS (7 sets, daily range): BP systolic 76–103; BP diastolic 54–67
[2021-07-16] MEDS: Pantoprazole IV 40 MG in SODIUM CHLORIDE 0.9% 50ML 50 ML IV SCH ×5 (00:42→21:55)
[2021-07-16] MEDS: METOPROLOL TARTRATE 50 MG TAB NG SCH ×3 (06:00→21:55)
[2021-07-16] MEDS: DILTIAZEM HCL 30 MG TAB PO SCH ×2 (06:00→16:25)
[2021-07-16] MEDS: LEVOTHYROXINE SODIUM 112 MCG TAB PO SCH (06:22)
[2021-07-16] MEDS: LEVOTHYROXINE SODIUM 25 MCG TABLET PO SCH (06:22)
[2021-07-16 06:52] LABS: HEMATOCRIT 25.2 % (34.2-44.1); HEMOGLOBIN 8.6 g/dL (12.0-16.0); LYMPHOCYTES # (AUTO) 71.3 (1.0-3.2); LYMPHOCYTES % 85.3 % (18.0-39.1); MEAN CORPUSCULAR HEMOGLOBIN 33.3 pg (28-32); MEAN CORPUSCULAR HGB CONC 34.1 g/dL (31-35); MEAN CORPUSCULAR VOLUME 97.7 fL (81-99); MONOCYTES # (AUTO) 1.2 (0.2-0.8); MONOCYTES % 1.4 % (4.4-11.3); NEUTROPHILS # (AUTO) 10.4 (2.1-6.9); NEUTROPHILS % 12.5 % (38.7-80.0); PLATELET COUNT 295 x10e3/uL (140-360); RED BLOOD COUNT 2.58 x10e6/uL (3.6-5.1); RED CELL DISTRIBUTION WIDTH 17.1 % (11.7-14.4)
[2021-07-16 07:05] LABS: ALBUMIN 2.5 g/dL (3.5-5.0); ALBUMIN/GLOBULIN RATIO 0.8 (0.8-2.0); ANION GAP 14.6 mmol/L (8-16); CALCIUM 7.3 mg/dL (8.4-10.2); CREATININE, SERUM 0.75 mg/dL (0.57-1.11); POTASSIUM 4.6 mmol/L (3.5-5.1)
[2021-07-16] MEDS: INSULIN LISPRO 100 UNIT/1 ML 3ML VIAL SQ SCH ×6 (07:30→21:53)
[2021-07-16 08:24] LABS: LYMPHOCYTES % (MANUAL) 88 % (19-48); MONOCYTES % (MANUAL) 2 % (3.4-9.0); NEUTROPHILS % (MANUAL) 10 % (40-74)
[2021-07-16 08:25] LABS: PLATELET ESTIMATE ADEQUATE; PLATELET MORPHOLOGY COMMENT NORMAL; RBC MORPHOLOGY COMMENT NORMAL
[2021-07-16] MEDS: ALLOPURINOL 100 MG TAB PO SCH (08:57)
[2021-07-16] MEDS: MULTIVITAMINS/MINERALS TAB PO SCH (08:57)
[2021-07-16] MEDS: HYDROXYUREA 500 MG CAPSULE PO SCH ×2 (08:57→16:24)
[2021-07-16] MEDS: AMIODARONE HCL 200 MG TAB PO SCH ×2 (08:57→16:24)
[2021-07-16] MEDS: DEXAMETHASONE SOD PHOS 10 MG/1 ML VIAL IV SCH (08:57)
[2021-07-16] MEDS ORDERED: INSULIN GLARGINE 100 UNITS/ML VIAL SQ SCH (21:00)
[2021-07-17] VITALS (12 sets, daily range): BP systolic 97–122; BP diastolic 61–82
[2021-07-17] MEDS: Pantoprazole IV 40 MG in SODIUM CHLORIDE 0.9% 50ML 50 ML IV SCH ×5 (02:37→21:06)
[2021-07-17 05:55] LABS: HEMATOCRIT 24.4 % (34.2-44.1); HEMOGLOBIN 7.3 g/dL (12.0-16.0); LYMPHOCYTES # (AUTO) 83.3 (1.0-3.2); LYMPHOCYTES % 86.2 % (18.0-39.1); MEAN CORPUSCULAR HEMOGLOBIN 29.1 pg (28-32); MEAN CORPUSCULAR HGB CONC 29.9 g/dL (31-35); MEAN CORPUSCULAR VOLUME 97.2 fL (81-99); MONOCYTES # (AUTO) 1.9 (0.2-0.8); MONOCYTES % 1.9 % (4.4-11.3); NEUTROPHILS # (AUTO) 10.8 (2.1-6.9); NEUTROPHILS % 11.3 % (38.7-80.0); PLATELET COUNT 369 x10e3/uL (140-360); RED BLOOD COUNT 2.51 x10e6/uL (3.6-5.1); RED CELL DISTRIBUTION WIDTH 19.6 % (11.7-14.4)
[2021-07-17] MEDS: DILTIAZEM HCL 30 MG TAB PO SCH ×2 (05:58→17:35)
[2021-07-17] MEDS: LEVOTHYROXINE SODIUM 112 MCG TAB PO SCH (05:58)
[2021-07-17] MEDS: LEVOTHYROXINE SODIUM 25 MCG TABLET PO SCH (05:58)
[2021-07-17] MEDS: METOPROLOL TARTRATE 50 MG TAB NG SCH ×2 (05:58→14:00)
[2021-07-17 06:15] LABS: ALBUMIN 2.4 g/dL (3.5-5.0); ALBUMIN/GLOBULIN RATIO 0.8 (0.8-2.0); ANION GAP 11.5 mmol/L (8-16); CALCIUM 7.1 mg/dL (8.4-10.2); CREATININE, SERUM 0.84 mg/dL (0.57-1.11); POTASSIUM 4.5 mmol/L (3.5-5.1)
[2021-07-17] MEDS: INSULIN LISPRO 100 UNIT/1 ML 3ML VIAL SQ SCH ×7 (07:30→21:06)
[2021-07-17] MEDS: MULTIVITAMINS/MINERALS TAB PO SCH (08:32)
[2021-07-17] MEDS: AMIODARONE HCL 200 MG TAB PO SCH ×2 (08:32→17:35)
[2021-07-17] MEDS: ALLOPURINOL 100 MG TAB PO SCH (08:32)
[2021-07-17] MEDS: DEXAMETHASONE SOD PHOS 10 MG/1 ML VIAL IV SCH (08:32)
[2021-07-17] MEDS: HYDROXYUREA 500 MG CAPSULE PO SCH ×2 (08:32→17:35)
[2021-07-17 11:23] LABS: HYPERSEGMENTED NEUTROPHILS FEW; LYMPHOCYTES % (MANUAL) 80 % (19-48); MONOCYTES % (MANUAL) 5 % (3.4-9.0); NEUTROPHILS % (MANUAL) 15 % (40-74)
[2021-07-17 11:24] LABS: HYPOCHROMASIA SLIG; PLATELET ESTIMATE SLIGHTLY INCREASED; PLATELET MORPHOLOGY COMMENT FEW EDTA CLUMPING; RBC MORPHOLOGY COMMENT NORMAL
[2021-07-17] MEDS: INSULIN GLARGINE 100 UNITS/ML VIAL SQ SCH (20:53)
[2021-07-17] MEDS: METOPROLOL SUCCINATE 50 MG TAB XL PO SCH (20:53)
[2021-07-17] MEDS ORDERED: METOPROLOL TARTRATE 50 MG TAB NG SCH (21:00)
[2021-07-18] VITALS (10 sets, daily range): BP systolic 93–119; BP diastolic 53–79
[2021-07-18] MEDS: ACETAMINOPHEN 325 MG TAB PO PRN (02:21)
[2021-07-18] MEDS ORDERED: PHYTONADIONE IV ONE (02:45)
[2021-07-18] MEDS ORDERED: SODIUM CHLORIDE 0.9% IV ONE (02:45)
[2021-07-18] MEDS: Pantoprazole IV 40 MG in SODIUM CHLORIDE 0.9% 50ML 50 ML IV SCH ×4 (02:47→21:05)
[2021-07-18] MEDS ORDERED: PHYTONADIONE 10MG/ML 2 ML ONE (03:04)
[2021-07-18] MEDS: LEVOTHYROXINE SODIUM 112 MCG TAB PO SCH (05:26)
[2021-07-18] MEDS: LEVOTHYROXINE SODIUM 25 MCG TABLET PO SCH (05:26)
[2021-07-18] MEDS: METOPROLOL SUCCINATE 50 MG TAB XL PO SCH ×2 (05:29→18:15)
[2021-07-18 06:10] LABS: HEMATOCRIT 23.6 % (34.2-44.1); HEMOGLOBIN 7.3 g/dL (12.0-16.0); LYMPHOCYTES # (AUTO) 65.7 (1.0-3.2); MEAN CORPUSCULAR HEMOGLOBIN 30.2 pg (28-32); MEAN CORPUSCULAR HGB CONC 30.9 g/dL (31-35); MEAN CORPUSCULAR VOLUME 97.5 fL (81-99); MONOCYTES # (AUTO) 1.5 (0.2-0.8); MONOCYTES % 1.9 % (4.4-11.3); NEUTROPHILS # (AUTO) 11.4 (2.1-6.9); NEUTROPHILS % 14.5 % (38.7-80.0); PLATELET COUNT 311 x10e3/uL (140-360); RED BLOOD COUNT 2.42 x10e6/uL (3.6-5.1); RED CELL DISTRIBUTION WIDTH 19.5 % (11.7-14.4)
[2021-07-18 06:18] LABS: ALBUMIN 2.4 g/dL (3.5-5.0); ALBUMIN/GLOBULIN RATIO 0.8 (0.8-2.0); ANION GAP 13.4 mmol/L (8-16); CREATININE, SERUM 0.85 mg/dL (0.57-1.11); POTASSIUM 4.4 mmol/L (3.5-5.1)
[2021-07-18 06:22] LABS: CALCIUM 6.9 mg/dL (8.4-10.2)
[2021-07-18] MEDS: SUCRALFATE 1 GM TAB PO SCH ×4 (07:30→22:07)
[2021-07-18 08:07] LABS: ANISOCYTOSIS MODERATE; LYMPHOCYTES % (MANUAL) 73 % (19-48); MONOCYTES % (MANUAL) 3 % (3.4-9.0); NEUTROPHILS % (MANUAL) 24 % (40-74); NUCLEATED RED BLOOD CELLS 1; PLATELET ESTIMATE ADEQUATE; PLATELET MORPHOLOGY COMMENT NORMAL; RBC MORPHOLOGY COMMENT ABNORMAL
[2021-07-18 08:08] LABS: HYPOCHROMASIA SLIGHT; POLYCHROMASIA FEW
[2021-07-18 08:26] LABS: SMUDGE CELLS MODERATE
[2021-07-18] MEDS: INSULIN LISPRO 100 UNIT/1 ML 3ML VIAL SQ SCH ×7 (08:30→21:00)
[2021-07-18] MEDS: MULTIVITAMINS/MINERALS TAB PO SCH (11:07)
[2021-07-18] MEDS: HYDROXYUREA 500 MG CAPSULE PO SCH ×2 (11:08→18:15)
[2021-07-18] MEDS: ALLOPURINOL 100 MG TAB PO SCH (11:08)
[2021-07-18] MEDS: AMIODARONE HCL 200 MG TAB PO SCH ×2 (11:08→18:15)
[2021-07-18] MEDS: OYST-CAL-D 500MG TABLET PO SCH (18:15)
[2021-07-18] MEDS: INSULIN GLARGINE 100 UNITS/ML VIAL SQ SCH (21:05)
[2021-07-19] VITALS (9 sets, daily range): BP systolic 94–135; BP diastolic 54–99
[2021-07-19] MEDS: MELATONIN 3 MG TAB PO PRN ×2 (00:20→23:30)
[2021-07-19] MEDS: Pantoprazole IV 40 MG in SODIUM CHLORIDE 0.9% 50ML 50 ML IV SCH ×5 (01:20→21:27)
[2021-07-19] MEDS: LEVOTHYROXINE SODIUM 112 MCG TAB PO SCH (06:16)
[2021-07-19] MEDS: LEVOTHYROXINE SODIUM 25 MCG TABLET PO SCH (06:16)
[2021-07-19] MEDS: METOPROLOL SUCCINATE 50 MG TAB XL PO SCH ×2 (06:55→18:15)
[2021-07-19] MEDS: INSULIN LISPRO 100 UNIT/1 ML 3ML VIAL SQ SCH ×7 (07:30→21:00)
[2021-07-19] MEDS: SUCRALFATE 1 GM TAB PO SCH ×4 (08:37→21:25)
[2021-07-19] MEDS: ALLOPURINOL 100 MG TAB PO SCH (09:30)
[2021-07-19] MEDS: HYDROXYUREA 500 MG CAPSULE PO SCH ×3 (09:30→20:00)
[2021-07-19] MEDS: MULTIVITAMINS/MINERALS TAB PO SCH (09:30)
[2021-07-19] MEDS: AMIODARONE HCL 200 MG TAB PO SCH ×2 (09:30→17:21)
[2021-07-19] MEDS: OYST-CAL-D 500MG TABLET PO SCH ×3 (09:30→20:00)
[2021-07-19] MEDS: ACETAMINOPHEN 325 MG TAB PO PRN ×2 (10:31→17:22)
[2021-07-19 11:15] LABS: EOSINOPHILS # (AUTO) 0.1 (0.0-0.4); EOSINOPHILS % 0.1 % (0.0-6.0); HEMATOCRIT 31.2 % (34.2-44.1); HEMOGLOBIN 9.1 g/dL (12.0-16.0); MEAN CORPUSCULAR HEMOGLOBIN 30.5 pg (28-32); MEAN CORPUSCULAR HGB CONC 29.2 g/dL (31-35); MONOCYTES # (AUTO) 0.7 (0.2-0.8); MONOCYTES % 0.8 % (4.4-11.3); NEUTROPHILS # (AUTO) 14.3 (2.1-6.9); NEUTROPHILS % 16.3 % (38.7-80.0); PLATELET COUNT 268 x10e3/uL (140-360); RED BLOOD COUNT 2.98 x10e6/uL (3.6-5.1); RED CELL DISTRIBUTION WIDTH 23.2 % (11.7-14.4)
[2021-07-19 11:17] LABS: MEAN CORPUSCULAR VOLUME 104.7 fL (81-99)
[2021-07-19] MEDS: HEPARIN SOD (PORCINE) 5,000 UNIT/ML VIAL SC SCH (21:26)
[2021-07-19] MEDS: INSULIN GLARGINE 100 UNITS/ML VIAL SQ SCH (21:27)
[2021-07-20] VITALS (8 sets, daily range): BP systolic 107–140; BP diastolic 73–95
[2021-07-20] MEDS: Pantoprazole IV 40 MG in SODIUM CHLORIDE 0.9% 50ML 50 ML IV SCH ×5 (03:30→19:59)
[2021-07-20] MEDS: LEVOTHYROXINE SODIUM 25 MCG TABLET PO SCH (06:00)
[2021-07-20] MEDS: LEVOTHYROXINE SODIUM 112 MCG TAB PO SCH (06:00)
[2021-07-20] MEDS: METOPROLOL SUCCINATE 50 MG TAB XL PO SCH ×2 (06:30→16:44)
[2021-07-20] MEDS: ACETAMINOPHEN 325 MG TAB PO PRN ×2 (07:00→20:30)
[2021-07-20] MEDS: INSULIN LISPRO 100 UNIT/1 ML 3ML VIAL SQ SCH ×7 (07:30→20:50)
[2021-07-20] MEDS: SUCRALFATE 1 GM TAB PO SCH ×4 (08:21→19:59)
[2021-07-20] MEDS: AMIODARONE HCL 200 MG TAB PO SCH ×2 (08:21→16:34)
[2021-07-20] MEDS: CALCITRIOL 0.25 MCG CAP PO SCH (08:22)
[2021-07-20] MEDS: HYDROXYUREA 500 MG CAPSULE PO SCH ×2 (08:22→16:34)
[2021-07-20] MEDS: MULTIVITAMINS/MINERALS TAB PO SCH (08:22)
[2021-07-20] MEDS: ALLOPURINOL 100 MG TAB PO SCH (08:22)
[2021-07-20] MEDS: OYST-CAL-D 500MG TABLET PO SCH ×5 (08:22→19:59)
[2021-07-20] MEDS: HEPARIN SOD (PORCINE) 5,000 UNIT/ML VIAL SC SCH ×2 (08:22→20:04)
[2021-07-20 09:03] LABS: EOSINOPHILS # (AUTO) 0.1 (0.0-0.4); EOSINOPHILS % 0.2 % (0.0-6.0); HEMATOCRIT 23.9 % (34.2-44.1); HEMOGLOBIN 7.7 g/dL (12.0-16.0); LYMPHOCYTES # (AUTO) 55.4 (1.0-3.2); LYMPHOCYTES % 88.3 % (18.0-39.1); MEAN CORPUSCULAR HEMOGLOBIN 32.4 pg (28-32); MEAN CORPUSCULAR HGB CONC 32.2 g/dL (31-35); MEAN CORPUSCULAR VOLUME 100.4 fL (81-99); MONOCYTES # (AUTO) 0.4 (0.2-0.8); MONOCYTES % 0.7 % (4.4-11.3); NEUTROPHILS # (AUTO) 6.6 (2.1-6.9); NEUTROPHILS % 10.5 % (38.7-80.0); PLATELET COUNT 262 x10e3/uL (140-360); RED BLOOD COUNT 2.38 x10e6/uL (3.6-5.1); RED CELL DISTRIBUTION WIDTH 21.6 % (11.7-14.4)
[2021-07-20 10:24] LABS: LYMPHOCYTES % (MANUAL) 81 % (19-48); MONOCYTES % (MANUAL) 4 % (3.4-9.0); NEUTROPHILS % (MANUAL) 15 % (40-74)
[2021-07-20 10:25] LABS: ANISOCYTOSIS MODERATE; HYPOCHROMASIA MODERATE; PLATELET ESTIMATE ADEQUATE; PLATELET MORPHOLOGY COMMENT FEW LARGE; RBC MORPHOLOGY COMMENT ABNORMAL
[2021-07-20] MEDS ORDERED: CALCIUM CHLORIDE 10% 1.36 MEQ/ML 10ML SYR IV STA (14:19)
[2021-07-20] MEDS ORDERED: CALCIUM CHLORIDE 10% SYRINGE 13.6 MEQ in SODIUM CHLORIDE 0.9% 100 ML IV ONE (15:00)
[2021-07-20] MEDS: INSULIN GLARGINE 100 UNITS/ML VIAL SQ SCH (20:49)
[2021-07-21] VITALS (7 sets, daily range): BP systolic 90–120; BP diastolic 50–86
[2021-07-21] MEDS ORDERED: SODIUM CHLORIDE 0.9% 250ML 250 ML IV ONE (00:15)
[2021-07-21] MEDS: Pantoprazole IV 40 MG in SODIUM CHLORIDE 0.9% 50ML 50 ML IV SCH ×5 (01:47→23:50)
[2021-07-21] MEDS: LEVOTHYROXINE SODIUM 112 MCG TAB PO SCH (05:33)
[2021-07-21] MEDS: LEVOTHYROXINE SODIUM 25 MCG TABLET PO SCH (05:33)
[2021-07-21] MEDS: METOPROLOL SUCCINATE 50 MG TAB XL PO SCH ×2 (05:38→18:15)
[2021-07-21] MEDS: INSULIN LISPRO 100 UNIT/1 ML 3ML VIAL SQ SCH ×7 (07:30→20:55)
[2021-07-21] MEDS: SUCRALFATE 1 GM TAB PO SCH ×5 (07:30→20:53)
[2021-07-21] MEDS: OYST-CAL-D 500MG TABLET PO SCH ×4 (09:00→20:53)
[2021-07-21] MEDS: HYDROXYUREA 500 MG CAPSULE PO SCH ×3 (09:00→20:52)
[2021-07-21] MEDS: MULTIVITAMINS/MINERALS TAB PO SCH (09:00)
[2021-07-21] MEDS: ALLOPURINOL 100 MG TAB PO SCH (09:00)
[2021-07-21] MEDS: HEPARIN SOD (PORCINE) 5,000 UNIT/ML VIAL SC SCH ×2 (09:00→20:55)
[2021-07-21] MEDS: CALCITRIOL 0.25 MCG CAP PO SCH (09:00)
[2021-07-21] MEDS: AMIODARONE HCL 200 MG TAB PO SCH ×2 (09:00→17:00)
[2021-07-21] MEDS ORDERED: PROPOFOL IV EMULSION 10 MG/ML 20 ML VIAL ONE (12:41)
[2021-07-21] MEDS ORDERED: DEXTROSE 5% 250ML 250 ML IV ONE (16:32)
[2021-07-21] MEDS ORDERED: SODIUM CHLORIDE 0.9% 50ML 50 ML ONE (19:02)
[2021-07-21] MEDS ORDERED: IOPAMIDOL 370 MG/ML 200 ML INFUS..BTL INJ ONE (19:02)
[2021-07-21] MEDS: INSULIN GLARGINE 100 UNITS/ML VIAL SQ SCH (20:55)
[2021-07-22] VITALS (12 sets, daily range): BP systolic 83–94; BP diastolic 53–73
[2021-07-22] MEDS: Pantoprazole IV 40 MG in SODIUM CHLORIDE 0.9% 50ML 50 ML IV SCH ×5 (04:56→22:00)
[2021-07-22] MEDS: LEVOTHYROXINE SODIUM 112 MCG TAB PO SCH (04:56)
[2021-07-22] MEDS: LEVOTHYROXINE SODIUM 25 MCG TABLET PO SCH (04:56)
[2021-07-22 06:00] LABS: BASOPHILS % 0.1 % (0.0-1.0); EOSINOPHILS # (AUTO) 0.2 (0.0-0.4); EOSINOPHILS % 0.3 % (0.0-6.0); HEMATOCRIT 25.3 % (34.2-44.1); HEMOGLOBIN 7.7 g/dL (12.0-16.0); LYMPHOCYTES # (AUTO) 40.9 (1.0-3.2); LYMPHOCYTES % 82.8 % (18.0-39.1); MEAN CORPUSCULAR HEMOGLOBIN 31.4 pg (28-32); MEAN CORPUSCULAR HGB CONC 30.4 g/dL (31-35); MEAN CORPUSCULAR VOLUME 103.3 fL (81-99); MONOCYTES # (AUTO) 0.6 (0.2-0.8); MONOCYTES % 1.3 % (4.4-11.3); NEUTROPHILS # (AUTO) 7.6 (2.1-6.9); NEUTROPHILS % 15.2 % (38.7-80.0); PLATELET COUNT 219 x10e3/uL (140-360); RED BLOOD COUNT 2.45 x10e6/uL (3.6-5.1); RED CELL DISTRIBUTION WIDTH 25.2 % (11.7-14.4)
[2021-07-22 06:20] LABS: ALBUMIN 2.2 g/dL (3.5-5.0); ALBUMIN/GLOBULIN RATIO 0.8 (0.8-2.0); ANION GAP 12.8 mmol/L (8-16); CALCIUM 7.7 mg/dL (8.4-10.2); CREATININE, SERUM 0.83 mg/dL (0.57-1.11); POTASSIUM 3.8 mmol/L (3.5-5.1)
[2021-07-22] MEDS: VALSARTAN/SACUBITRIL 24MG/26MG 1 EA TAB PO SCH (09:05)
[2021-07-22] MEDS: OYST-CAL-D 500MG TABLET PO SCH ×4 (09:05→20:10)
[2021-07-22] MEDS: MULTIVITAMINS/MINERALS TAB PO SCH (09:05)
[2021-07-22] MEDS: SUCRALFATE 1 GM TAB PO SCH ×4 (09:05→20:10)
[2021-07-22] MEDS: AMIODARONE HCL 200 MG TAB PO SCH ×2 (09:05→17:03)
[2021-07-22] MEDS: ALLOPURINOL 100 MG TAB PO SCH (09:06)
[2021-07-22] MEDS: CALCITRIOL 0.25 MCG CAP PO SCH (09:06)
[2021-07-22] MEDS: HYDROXYUREA 500 MG CAPSULE PO SCH ×2 (09:06→17:03)
[2021-07-22] MEDS: METOPROLOL SUCCINATE 50 MG TAB XL PO SCH ×2 (09:10→17:04)
[2021-07-22] MEDS: HEPARIN SOD (PORCINE) 5,000 UNIT/ML VIAL SC SCH ×2 (09:44→20:17)
[2021-07-22] MEDS: INSULIN LISPRO 100 UNIT/1 ML 3ML VIAL SQ SCH ×7 (09:44→20:17)
[2021-07-22 10:56] LABS: ANISOCYTOSIS MODE; LYMPHOCYTES % (MANUAL) 81 % (19-48); MONOCYTES % (MANUAL) 3 % (3.4-9.0); NEUTROPHILS % (MANUAL) 16 % (40-74); PLATELET ESTIMATE ADEQUATE; RBC MORPHOLOGY COMMENT ABNORMAL; SMUDGE CELLS MODERATE
[2021-07-22] MEDS ORDERED: CALCIUM GLUCONATE 10% INJ 4.65 MEQ in SODIUM CHLORIDE 0.9% 50ML 50 ML IV ONE (15:00)
[2021-07-22] MEDS: INSULIN GLARGINE 100 UNITS/ML VIAL SQ SCH (20:18)
[2021-07-23] VITALS (8 sets, daily range): BP systolic 92–125; BP diastolic 60–88
[2021-07-23] MEDS: METOPROLOL SUCCINATE 50 MG TAB XL PO SCH ×2 (06:15→18:36)
[2021-07-23] MEDS: LEVOTHYROXINE SODIUM 25 MCG TABLET PO SCH (06:39)
[2021-07-23] MEDS: LEVOTHYROXINE SODIUM 112 MCG TAB PO SCH (06:39)
[2021-07-23 07:03] LABS: BASOPHILS % 0.1 % (0.0-1.0); EOSINOPHILS # (AUTO) 0.1 (0.0-0.4); EOSINOPHILS % 0.3 % (0.0-6.0); HEMOGLOBIN 7.6 g/dL (12.0-16.0); LYMPHOCYTES # (AUTO) 36.2 (1.0-3.2); LYMPHOCYTES % 81.2 % (18.0-39.1); MEAN CORPUSCULAR HEMOGLOBIN 30.6 pg (28-32); MEAN CORPUSCULAR HGB CONC 29.2 g/dL (31-35); MEAN CORPUSCULAR VOLUME 104.8 fL (81-99); MONOCYTES # (AUTO) 0.4 (0.2-0.8); NEUTROPHILS # (AUTO) 7.6 (2.1-6.9); PLATELET COUNT 190 x10e3/uL (140-360); RED BLOOD COUNT 2.48 x10e6/uL (3.6-5.1); RED CELL DISTRIBUTION WIDTH 27.3 % (11.7-14.4)
[2021-07-23] MEDS: INSULIN LISPRO 100 UNIT/1 ML 3ML VIAL SQ SCH ×7 (07:30→20:28)
[2021-07-23 07:45] LABS: ALBUMIN 2.3 g/dL (3.5-5.0); ALBUMIN/GLOBULIN RATIO 0.9 (0.8-2.0); ANION GAP 14.9 mmol/L (8-16); CALCIUM 8.4 mg/dL (8.4-10.2); CREATININE, SERUM 0.77 mg/dL (0.57-1.11); POTASSIUM 3.9 mmol/L (3.5-5.1)
[2021-07-23] MEDS: ALLOPURINOL 100 MG TAB PO SCH (09:20)
[2021-07-23] MEDS: VALSARTAN/SACUBITRIL 24MG/26MG 1 EA TAB PO SCH (09:20)
[2021-07-23] MEDS: HYDROXYUREA 500 MG CAPSULE PO SCH ×2 (09:20→18:36)
[2021-07-23] MEDS: SUCRALFATE 1 GM TAB PO SCH ×4 (09:20→20:23)
[2021-07-23] MEDS: MULTIVITAMINS/MINERALS TAB PO SCH (09:20)
[2021-07-23] MEDS: CALCITRIOL 0.25 MCG CAP PO SCH (09:20)
[2021-07-23] MEDS: OYST-CAL-D 500MG TABLET PO SCH ×4 (09:20→20:23)
[2021-07-23] MEDS: AMIODARONE HCL 200 MG TAB PO SCH ×2 (09:20→18:36)
[2021-07-23] MEDS: HEPARIN SOD (PORCINE) 5,000 UNIT/ML VIAL SC SCH ×2 (09:21→20:27)
[2021-07-23] MEDS: INSULIN GLARGINE 100 UNITS/ML VIAL SQ SCH (20:28)
[2021-07-23] MEDS: MELATONIN 3 MG TAB PO PRN (21:24)
[2021-07-24 04:27] VITALS: BP 109/98
[2021-07-24] MEDS: LEVOTHYROXINE SODIUM 112 MCG TAB PO SCH (05:41)
[2021-07-24] MEDS: LEVOTHYROXINE SODIUM 25 MCG TABLET PO SCH (05:41)
[2021-07-24] MEDS: METOPROLOL SUCCINATE 50 MG TAB XL PO SCH (05:42)
[2021-07-24 06:01] LABS: BASOPHILS # (AUTO) 0.1 (0.0-0.1); BASOPHILS % 0.2 % (0.0-1.0); EOSINOPHILS # (AUTO) 0.1 (0.0-0.4); EOSINOPHILS % 0.4 % (0.0-6.0); HEMATOCRIT 23.4 % (34.2-44.1); HEMOGLOBIN 7.1 g/dL (12.0-16.0); LYMPHOCYTES # (AUTO) 29.9 (1.0-3.2); LYMPHOCYTES % 83.9 % (18.0-39.1); MEAN CORPUSCULAR HEMOGLOBIN 31.8 pg (28-32); MEAN CORPUSCULAR HGB CONC 30.3 g/dL (31-35); MEAN CORPUSCULAR VOLUME 104.9 fL (81-99); MONOCYTES # (AUTO) 0.3 (0.2-0.8); MONOCYTES % 0.9 % (4.4-11.3); NEUTROPHILS # (AUTO) 5.1 (2.1-6.9); NEUTROPHILS % 14.4 % (38.7-80.0); PLATELET COUNT 163 x10e3/uL (140-360); RED BLOOD COUNT 2.23 x10e6/uL (3.6-5.1); RED CELL DISTRIBUTION WIDTH 26.2 % (11.7-14.4)
[2021-07-24 06:16] LABS: ALBUMIN 2.4 g/dL (3.5-5.0); ALBUMIN/GLOBULIN RATIO 0.8 (0.8-2.0); ANION GAP 12.9 mmol/L (8-16); CALCIUM 8.9 mg/dL (8.4-10.2); CREATININE, SERUM 0.75 mg/dL (0.57-1.11); POTASSIUM 3.9 mmol/L (3.5-5.1)
[2021-07-24] MEDS: INSULIN LISPRO 100 UNIT/1 ML 3ML VIAL SQ SCH ×4 (07:30→11:30)
[2021-07-24 07:57] VITALS: BP 128/68
[2021-07-24 08:00] VITALS: BP 128/68
[2021-07-24] MEDS: SUCRALFATE 1 GM TAB PO SCH ×2 (08:55→12:01)
[2021-07-24] MEDS: HYDROXYUREA 500 MG CAPSULE PO SCH (09:00)
[2021-07-24] MEDS: ALLOPURINOL 100 MG TAB PO SCH (09:00)
[2021-07-24] MEDS: VALSARTAN/SACUBITRIL 24MG/26MG 1 EA TAB PO SCH (09:00)
[2021-07-24] MEDS: AMIODARONE HCL 200 MG TAB PO SCH (09:00)
[2021-07-24] MEDS: CALCITRIOL 0.25 MCG CAP PO SCH (09:00)
[2021-07-24] MEDS: MULTIVITAMINS/MINERALS TAB PO SCH (09:00)
[2021-07-24] MEDS: OYST-CAL-D 500MG TABLET PO SCH ×2 (09:00→12:02)
[2021-07-24] MEDS: HEPARIN SOD (PORCINE) 5,000 UNIT/ML VIAL SC SCH (09:03)
[2021-07-24 11:50] VITALS: BP 118/86
== END 2021-07-24 13:49 | DRG 871 ==
LOC: ER 12:23 → ERHOLD 12:36 → ICU 13:57 → IMCU 07-15 17:59
PROC: 02HV33Z Insertion of Infusion Device into Superior Vena Cava, Percutaneous Approach (ICD-10-PCS; 2021-07-07)
PROC: 5A0945A Assistance with Respiratory Ventilation, 24-96 Consecutive Hours, High Flow/Velocity Cannula (ICD-10-PCS; 2021-07-07)
PROC: 3E0333Z Introduction of Anti-inflammatory into Peripheral Vein, Percutaneous Approach (ICD-10-PCS; 2021-07-07)
PROC: XW033E5 Introduction of Remdesivir Anti-infective into Peripheral Vein, Percutaneous Approach, New Technology Group 5 (ICD-10-PCS; 2021-07-07)
PROC: 3E03329 Introduction of Other Anti-infective into Peripheral Vein, Percutaneous Approach (ICD-10-PCS; 2021-07-07)
PROC: 5A09357 Assistance with Respiratory Ventilation, Less than 24 Consecutive Hours, Continuous Positive Airway Pressure (ICD-10-PCS; 2021-07-09)
PROC: 02HV33Z Insertion of Infusion Device into Superior Vena Cava, Percutaneous Approach (ICD-10-PCS; 2021-07-09)
PROC: 30233N1 Transfusion of Nonautologous Red Blood Cells into Peripheral Vein, Percutaneous Approach (ICD-10-PCS; 2021-07-14)
PROC: 0DB78ZX Excision of Stomach, Pylorus, Via Natural or Artificial Opening Endoscopic, Diagnostic (ICD-10-PCS; 2021-07-21)
PROC: 0DB68ZX Excision of Stomach, Via Natural or Artificial Opening Endoscopic, Diagnostic (ICD-10-PCS; 2021-07-21)
PROC: 0DB98ZX Excision of Duodenum, Via Natural or Artificial Opening Endoscopic, Diagnostic (ICD-10-PCS; principal; 2021-07-21 16:30)
DX: A41.89 Other specified sepsis (principal); U07.1 COVID-19; E11.10 Type 2 diabetes mellitus with ketoacidosis without coma; J12.82 Pneumonia due to coronavirus disease 2019; J96.01 Acute respiratory failure with hypoxia; J15.9 Unspecified bacterial pneumonia; G93.41 Metabolic encephalopathy; I50.23 Acute on chronic systolic (congestive) heart failure; C92.10 Chronic myeloid leukemia, BCR/ABL-positive, not having achieved remission; N39.0 Urinary tract infection, site not specified; E87.2 Acidosis; E87.1 Hypo-osmolality and hyponatremia; I48.20 Chronic atrial fibrillation, unspecified; K92.1 Melena; D62 Acute posthemorrhagic anemia; Z68.41 Body mass index [BMI] 40.0-44.9, adult; E11.42 Type 2 diabetes mellitus with diabetic polyneuropathy; E03.9 Hypothyroidism, unspecified; J44.9 Chronic obstructive pulmonary disease, unspecified; E11.65 Type 2 diabetes mellitus with hyperglycemia; I25.2 Old myocardial infarction; E87.8 Other disorders of electrolyte and fluid balance, not elsewhere classified; J30.2 Other seasonal allergic rhinitis; K20.90 Esophagitis, unspecified without bleeding; K29.70 Gastritis, unspecified, without bleeding; K44.9 Diaphragmatic hernia without obstruction or gangrene; F88 Other disorders of psychological development; I48.0 Paroxysmal atrial fibrillation; T36.1X5A Adverse effect of cephalosporins and other beta-lactam antibiotics, initial encounter; Y92.230 Patient room in hospital as the place of occurrence of the external cause; D75.839 Thrombocytosis, unspecified; I11.0 Hypertensive heart disease with heart failure; E66.01 Morbid (severe) obesity due to excess calories; K31.89 Other diseases of stomach and duodenum; R59.0 Localized enlarged lymph nodes; Z79.4 Long term (current) use of insulin
CPT/HCPCS: 36415; 36569; 36600; 43239; 51700; 71045; 71260; 74018; 74170; 80048; 80053; 80202; 81001; 82270; 82607; 82728; 82746; 82805; 82948; 83036; 83540; 83605; 83615; 83690; 83735; 83880; 84100; 84436; 84439; 84443; 84466; 84479; 84484; 85025; 85045; 85379; 85610; 86141; 86850; 86900; 86920; 87040; 87086; 88184; 88305; 88312; 93005; 93306; 94664; 94799; 96361; 96372; 97139; 99251; 99285; J0248; J0610; J0692; J1100; J1160; J1630; J1644; J1650; J1815; J1817; J1940; J2060; J2185; J3370; J3430; J7030; J7050; J7070; J7121; J7799; P9016; Q9967; U0002